=== PATIENT | female | born 1965 | race Two or more races ===

== ENCOUNTER 2019-12-23 10:15 | Outpatient (CLI) | payer OTHER ==
[~2019-12-23 10:15] MED LIST: ACTIGALL300 MG; SYNTHROID112 MCG PO; URSO250 MG PO
== END 2019-12-23 10:17 | disposition home or self-care (01) ==
LOC: SONOGRAMA 10:15
DX: N61.1 Abscess of the breast and nipple (principal)

== ENCOUNTER 2019-12-23 12:14 | Outpatient (CLI) | payer OTHER | END 2019-12-23 12:33 | disposition home or self-care (01) | LOC: LAB 12:14 | DX: N61.1 Abscess of the breast and nipple (principal) ==

== ENCOUNTER 2021-01-25 05:54 | Day surgery (SDC) | payer OTHER ==
[~2021-01-25 05:54] MED LIST changes: +SYNTHROID125 MCG PO
== END 2021-01-25 20:45 | disposition home or self-care (01) ==
LOC: CIR.AMB 05:54 → AMB-ENDOS 08:30 → CIR.AMB 12:30
PROVIDERS: ATTEND Plastic Surgery
DX: N65.1 Disproportion of reconstructed breast (principal); Z90.11 Acquired absence of right breast and nipple; Z20.822 Contact with and (suspected) exposure to COVID-19
CPT/HCPCS: 19342; C1789; 19316